=== PATIENT | male | born 2005 | race Caucasian/White ===

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

== ENCOUNTER 2025-01-19 07:13 | Emergency (ER) | payer BC | END 2025-01-19 08:09 | disposition home or self-care (01) | LOC: BURERS 07:13 | DX: B34.9 Viral infection, unspecified (principal); F17.290 Nicotine dependence, other tobacco product, uncomplicated | CPT/HCPCS: 87081; 87428; 87430; 99283 ==